=== PATIENT | female | born 1970 | race American Indian/Alaskan Native ===

== ENCOUNTER 2017-08-01 06:06 | Day surgery (SDC) | payer MEDICARE ==
[2017-08-01] MEDS ORDERED: WATER FOR IRRIG STERILE IR ONE (07:27)
[2017-08-01] MEDS ORDERED: DIPRIVAN 10 MG/ML IV ONE (07:30)
--- NOTE | 2017-08-01 07:37 | Anesthesia Consultation ---
Anesthesia Consult and Med Hx Date of service: 08/01/17 - Airway Anesthetic Teeth Evaluation: Good ROM Head & Neck: Adequate Mental/Hyoid Distance: Adequate Mallampati Class: Class II Intubation Access Assessment: Probably Good - Pulmonary Exam CTA: Yes - Cardiac Exam Cardiac Exam: RRR - Pre-Operative Health Status ASA Pre-Surgery Classification: ASA3 Proposed Anesthetic Plan: MAC - Pulmonary Hx Smoking: Yes (former, quit 3 yrs, 1/2 ppd x10yrs) Hx Asthma: No - Cardiovascular System Hx Hypertension: Yes - Gastrointestinal Hx Gastroesophageal Reflux Disease: Yes (omeprazole prn) - Other Systems Hx Obesity: Yes - Additional Comments Anesthesia Medical History Comments: NAC
--- NOTE | 2017-08-01 07:37 | Anesthesia Day of Surgery ---
Anesthesia Day of Surgery - Day of Surgery Patient Examined: Yes Patient H&P Reviewed: Yes Patient is NPO: Yes
[2017-08-01] MEDS ORDERED: NACL 0.9% 1000 ML 1,000 ML IV SCH (08:00)
--- NOTE | 2017-08-01 08:00 | Discharge Summary ---
Providers - Providers Date of discharge: 08/01/17 Attending physician: SUSAN DAVIS Hospitalization Condition: Good Procedures: egd Disposition: DC-01 TO HOME OR SELFCARE Core Measure Documentation - Palliative Care Palliative Care/ Comfort Measures: Not Applicable - Core Measures Any of the following diagnoses?: none Exam - Physical Exam Narrative exam: unchanged from pre-op - Constitutional Vitals: Temp Pulse Resp BP Pulse Ox 98.2 F 56 L 12 155/76 98 08/01/17 07:39 08/01/17 07:39 08/01/17 07:39 08/01/17 07:39 08/01/17 07:39 Plan Activity: no restrictions Weight Bearing Status: Full Weight Bearing Diet: regular Follow up with: RUBÉN JESSICA [Other] - 7 Days
--- NOTE | 2017-08-01 08:10 | Operative Report ---
Operative Report Operative Report: OPERATIVE REPORT - EGD DATE 08/01/17 SURGERY: Upper endoscopy. SURGEON: Leland Carter M.D. PROCEDURE: 1. EGD 2. Gastric mucosal bx PRE OP DX: GERD POST OP DX: 1. hiatal hernia 2. peptic ulcer disease 3. gastritis TYPE OF ANESTHESIA: MAC. ESTIMATED BLOOD LOSS: None. COMPLICATIONS: None. SPECIMENS REMOVED: None. FINDINGS: 1. Small hiatal hernia. 2. several peptic ulcers 3. gastritis INDICATIONS:INDICATION FOR PROCEDURE: Patient is a 47-year-old female with a long history of morbid obesity. She is planned to have a weight loss procedure and is here for preoperative planning EGD. We are looking for any pathology that may be prohibitive to her planned bariatric surgery. PROCEDURE DETAILS: After consent was reviewed, patient was taken back to the operating room where patient was placed in the left lateral decubitus position and a bite block was placed in the mouth. After a time-out was called, MAC anesthesia was initiated. I then passed the endoscope into her oropharynx, into her esophagus, visualized the entire esophagus. There was noted to be several shallow, small less than 1cm ulcers predominantly in the antrum. A forceps biopsy was performed of an ulcer at the antrum. There was also noted to be gross erythemetous changes of the mucosa consistent with gastritis. I then visualized the first portion of the duodenum and there were no abnormalities I could clearly visualize. I then retroflexed the scope in the stomach and visualized the hiatus and I could see a small hiatal hernia. I then desufflated the stomach and removed the endoscope. Patient tolerated procedure well and was transferred to recovery room in good and stable condition.
--- NOTE | 2017-08-01 10:28 | Post Anesthesia Evaluation ---
- Post Anesthesia Evaluation Patient Participated: Yes Airway Patent: Yes Stable Respiratory Function: Yes Nausea/Vomiting: No Temp > 96.8F: Yes Pain Manageable: Yes Adequeate Hydration: Yes Anesthesia Complications: No Block Receding Appropriately: Not Applicable Patient on Ventilator: No
[2017-08-01 11:11] VITALS: BP 119/94
== END 2017-08-01 06:07 | disposition home or self-care (01) ==
LOC: GIO 06:06
PROVIDERS: ATTEND Surgery
DX: K29.50 Unspecified chronic gastritis without bleeding (principal); K44.9 Diaphragmatic hernia without obstruction or gangrene; K27.9 Peptic ulcer, site unspecified, unspecified as acute or chronic, without hemorrhage or perforation; K21.9 Gastro-esophageal reflux disease without esophagitis; I10 Essential (primary) hypertension; F32.9 Major depressive disorder, single episode, unspecified; E78.00 Pure hypercholesterolemia, unspecified; E66.01 Morbid (severe) obesity due to excess calories; G47.33 Obstructive sleep apnea (adult) (pediatric); F41.9 Anxiety disorder, unspecified; Z98.890 Other specified postprocedural states; Z82.49 Family history of ischemic heart disease and other diseases of the circulatory system; Z83.3 Family history of diabetes mellitus; Z80.9 Family history of malignant neoplasm, unspecified; Z68.43 Body mass index [BMI] 50.0-59.9, adult
CPT/HCPCS: 43239; 88305; 88342; J2704; J7030

== ENCOUNTER 2018-03-03 07:00 | Inpatient (IN) | payer MEDICARE ==
--- NOTE | 2018-02-24 10:01 | Anesthesia Consultation ---
Anesthesia Consult and Med Hx Date of service: 02/24/18 - Airway Anesthetic Teeth Evaluation: Good (Missing several molars for which she plans to get bridges next month) ROM Head & Neck: Adequate Mental/Hyoid Distance: Adequate Mallampati Class: Class II Intubation Access Assessment: Probably Good - Pulmonary Exam CTA: Yes - Cardiac Exam Cardiac Exam: RRR - Pre-Operative Health Status ASA Pre-Surgery Classification: ASA3 Proposed Anesthetic Plan: General Nerve Block: discussed the possibility of TAP block - Pulmonary Hx Smoking: Yes (FOR 10 YEARS, QUIT IN 2014) Hx Asthma: No Hx Sleep Apnea: No (SLEEP STUDY NEG) - Cardiovascular System Hx Hypertension: Yes (8 YEARS) - Central Nervous System Hx Back Pain: Yes Hx Psychiatric Problems: Yes - Gastrointestinal Hx Ulcer: Yes Hx Gastroesophageal Reflux Disease: Yes (omeprazole prn) - Other Systems Hx Alcohol Use: No Hx Substance Use: No Hx Cancer: No Hx Obesity: Yes
[~2018-03-03 07:00] MED LIST: ANCEF/STERILE WATER 2 GM/20 ML 2 GM/20 ML SYRINGE IV NR; APRESOLINE IV PRN; FLAGYL 500 MG/100 ML 500 MG/100 ML BAG IV NR; LACTATED RINGERS 1,000 ML IV SCH; LOVENOX SUB-Q NR; MORPHINE IV PRN; MYLICON PO PRN; NACL 0.9% 1000 ML 1,000 ML IV SCH; NORCO PO PRN; TRANSDERM-SCOP TD SCH; ZOFRAN IV PRN
--- NOTE | 2018-03-03 11:26 | Anesthesia Day of Surgery ---
Anesthesia Day of Surgery - Day of Surgery Patient Examined: Yes Patient H&P Reviewed: Yes Patient is NPO: Yes
[2018-03-03] MEDS ORDERED: DEMEROL IV PRN (11:29)
[2018-03-03] MEDS ORDERED: NARCAN 0.4 MG/1 ML IV PRN (11:29)
[2018-03-03] MEDS ORDERED: ZOFRAN IV PRN (11:29)
[2018-03-03] MEDS ORDERED: NACL BACTERIOSTATIC INFILTRATI ONE (11:55)
[2018-03-03] MEDS: LACTATED RINGERS 1,000 ML IV SCH (12:00)
[2018-03-03] MEDS ORDERED: TYLENOL PO NR (12:00)
[2018-03-03 12:34] LABS: Bilirubin,Urine NEG (Negative); Blood,Urine NEG (Negative); Color,Urine Yellow (Yellow); Mucus,Urine FEW /HPF; Protein,Urine <15 mg/dL mg/dL (Negative); Urobilinogen,Urine < 2.0 mg/dL (<2.0)
[2018-03-03] MEDS ORDERED: PEPCID IV NR (13:00)
[2018-03-03] MEDS ORDERED: DIPRIVAN 10 MG/ML IV ONE ×2 (13:49→14:12)
[2018-03-03] MEDS ORDERED: SUBLIMAZE ONE (13:50)
[2018-03-03] MEDS ORDERED: XYLOCAINE 1% 20 mL ONE (13:57)
[2018-03-03] MEDS ORDERED: MARCAINE 0.5% 30 ML INFILTRATI ONE (13:57)
[2018-03-03] MEDS ORDERED: MARCAINE 0.5% INFILTRATI ONE (14:30)
[2018-03-03] MEDS ORDERED: XYLOCAINE 1% 20 mL INFILTRATI ONE (14:30)
[2018-03-03] MEDS ORDERED: QUELICIN ONE (14:39)
[2018-03-03] MEDS ORDERED: ZEMURON IV ONE (14:39)
[2018-03-03] MEDS ORDERED: XYLOCAINE MPF 2% ONE (14:39)
[2018-03-03] MEDS ORDERED: NACL 0.9% IR ONE (14:41)
[2018-03-03] MEDS ORDERED: ROBINUL ONE (15:05)
[2018-03-03] MEDS ORDERED: ZOFRAN ONE (15:05)
[2018-03-03] MEDS ORDERED: NEOSTIGMINE ONE (15:05)
[2018-03-03] MEDS ORDERED: NACL 0.9% 1000 ML 1,000 ML ONE (15:35)
[2018-03-03] MEDS ORDERED: DILAUDID ONE (15:58)
[2018-03-03] MEDS ORDERED: XANAX PO PRN (16:21)
--- NOTE | 2018-03-03 16:35 | Operative Report ---
Operative Report Operative Report: Operative Report DATE OF PROCEDURE: 03/03/18 PREOPERATIVE DIAGNOSES: Morbid obesity, hiatal hernia POSTOPERATIVE DIAGNOSES: 1.same as pre-op SURGEON: Dr. Bustamante PROCESS MAINTENANCE TECHNICIAN: Noe Randhawa DO, CST PROCEDURE: 1. laparoscopic sleeve gastrectomy 2. laparoscopic hiatal hernia repair ANESTHESIA: General. ESTIMATED BLOOD LOSS: <5 mL. COMPLICATIONS: None. SPECIMEN: Partial gastrectomy. FINDINGS: 1. hiatal hernia INDICATION FOR PROCEDURE: Patient is a 48 year-old F with a long history of morbid obesity. The patient has tried multiple efforts at weight loss without snf success. Pt is here today for sleeve gastrectomy. She has a hx of an umbilical hernia repair. PROCEDURE IN DETAIL: After consent was reviewed, patient was taken back to the operating room, where patient was placed supine on the bed with both arms out. The patient's legs were doubly strapped to the bed. Patient had a foot board in place. Patient had a body warmer placed by anesthesia. Patient was then prepped and draped in normal sterile surgical fashion. After a time-out was called, I made a stab incision in the left upper quadrant and place a veress needled. The abdomen was insuflatted to 18mmhg. Because the patient has a hx of an umbilical hernia repair and a large incision was noted surrounding the umbilicus a 15mm trocar was placed approximately4 finger breaths superior to the umbilicus via optiview technique with a scope. I then placed a 45-degree scope through this port and inspected the abdomen. There was no injury on entry of the abdomen. The veress needel was removed. I then placed two 5-mm ports in the right upper quadrant, one along the anterior axillary line and 1 subxiphoid below the costovertebral angle. I then placed 2 5mm left upper quadrant pors along the anterior axillary line in a similar fashion. Upon inspection, a mesh was noted at the umbilicus. The 15mm trocar did not interfere with the mesh. I then placed the liver retractor through the subxiphoid port and placed the patient in full reverse Trendelenburg. The right and left crura were skeletonized accentuating a small hiatal hernia. An anterior cruraplasty was perfromed with a figure-of-8 stitch using Endostich with 0 ethibond suture to reapproximate the crura. I then identified the pylorus and then counted off 6cm from the pylorus. I then used a LigaSure cutting device to enter into the lesser sac. At that point and then I took down the short gastrics all the way up to the left kana. Then I had anesthesia pass down a 40 [place] bougie along the lesser curvature of the stomach. I made sure everything else was out of the abdomen except the bougie. I then created my gastric sleeve using a 60-mm laparoscopic stapler. . The sleeve looked good without any twisting or torsion. I then had anesthesia to remove the bougie. Hemostasis was obtained along the staple line with a 10m clip rail specialist. I then used Tiseel along the entirety of the staple line and some on the liver. I then removed liver grasper and took it off the field. I then removed the stomach through the 15-mm umbilcal port. I then closed that fascia with a #1 PDS in a [id number] fashion using a Andrea-Freya. I then desufflated the abdomen and then removed all port sites. I then closed the incisions with 4-0 Monocryl in subcuticular fashion. I then dressed the wounds with steristrips, gauze and tegaderms. Patient tolerated the procedure well and was transferred to recovery room in good and stable condition
[2018-03-03] MEDS: DILAUDID IV PRN ×3 (16:55→19:57)
[2018-03-03] MEDS: REGLAN IV PRN (17:10)
[2018-03-03] MEDS ORDERED: LATANOPROST 0.005% OU SCH (18:00)
[2018-03-03] MEDS: NEURONTIN PO SCH (21:29)
[2018-03-04] MEDS: REGLAN IV PRN (00:03)
[2018-03-04] MEDS: DILAUDID IV PRN ×2 (00:04→09:23)
[2018-03-04] MEDS: LACTATED RINGERS 1,000 ML IV SCH (00:08)
[2018-03-04] MEDS: NEURONTIN PO SCH ×2 (05:32→13:39)
[2018-03-04 06:05] LABS: Basophils % (Auto) 0.2 % (0.0-1.8); Eosinophils % (Auto) 0.1 % (0.0-4.3); Hematocrit 37.5 % (30.3-42.9); Hemoglobin 12.5 gm/dl (10.1-14.3); Lymphocytes # (Auto) 1.5 K/mm3 (1.2-5.4); Mean Corpuscular HGB Conc 34 % (30-34); Mean Corpuscular Hemoglobin 29 pg (28-32); Mean Corpuscular Volume 86 fl (79-97); Monocytes # (Auto) 0.9 K/mm3 (0.0-0.8); Monocytes % (Auto) 8.7 % (0.0-7.3); Platelet Count 240 K/mm3 (140-440); Red Blood Count 4.37 M/mm3 (3.65-5.03); Red Cell Distribution Width 14.9 % (13.2-15.2)
[2018-03-04 06:26] LABS: BUN/Creatinine Ratio 14; Blood Urea Nitrogen 10 mg/dL (7-17); Calcium 8.5 mg/dL (8.4-10.2); Hemolysis Index 6
[2018-03-04] MEDS ORDERED: ZOLOFT PO SCH (10:00)
[2018-03-04] MEDS ORDERED: NORVASC PO SCH (10:00)
[2018-03-04] MEDS ORDERED: ZANAFLEX PO SCH (10:00)
[2018-03-04] MEDS ORDERED: LOVENOX SUB-Q SCH (10:00)
--- NOTE | 2018-03-04 16:08 | Discharge Summary ---
Providers - Providers Date of Admission: 03/03/18 08:00 Attending physician: MENDEZ HENSLEY Hospitalization Procedures: laparoscopic sleeve gastrectomy with hiatal hernia repair . Hospital course: 48 y.o. F admitted to the hospital for bariatric surgery. She underwent a laparoscopic sleeve gastrectomy with hiatal hernia repair . She tolerated the procedure well. On POD 1 she tolerated liquids and her pain was controlled. Denies vomiting. She ambulated well. She was discharged on POD 1 without issues. Disposition: DC-01 TO HOME OR SELFCARE Core Measure Documentation - Palliative Care Palliative Care/ Comfort Measures: Not Applicable - Core Measures Any of the following diagnoses?: none Exam - Physical Exam Narrative exam: Gen : A+Ox3 Cardio RRR abd: soft, obese, tender at incision sites. no rebound no guarding. minimal blood stain on dressings. - Constitutional Vitals: Temp Pulse Resp BP Pulse Ox 99.2 F 82 18 127/63 90 03/04/18 11:31 03/04/18 11:31 03/04/18 11:31 03/04/18 11:31 03/04/18 11:31 Plan Activity: other (no lifting >15lbs for 6 weeks ) Diet: clear liquids (sugar free clears ) Wound: keep clean and dry Additional Instructions: follow up for wound check appointment Follow up with: LEEANN JESSICA [Other] - 7 Days
[2018-03-04 16:49] VITALS: BP 132/64
== END 2018-03-04 18:04 | disposition home or self-care (01) | DRG 327 ==
LOC: 3A 08:00 → 3B-SURG 16:51
PROVIDERS: ADMIT Specialist; ATTEND Specialist
PROC: 0DB64Z3 Excision of Stomach, Percutaneous Endoscopic Approach, Vertical (ICD-10-PCS; principal; 2018-03-03)
PROC: 0BQT4ZZ Repair Diaphragm, Percutaneous Endoscopic Approach (ICD-10-PCS; 2018-03-03)
DX: K44.9 Diaphragmatic hernia without obstruction or gangrene (principal); Z68.43 Body mass index [BMI] 50.0-59.9, adult; E66.01 Morbid (severe) obesity due to excess calories; K21.9 Gastro-esophageal reflux disease without esophagitis; Z87.891 Personal history of nicotine dependence; I10 Essential (primary) hypertension
CPT/HCPCS: 36415; 80048; 81001; 85025; 88307; 94760; C9250; J0330; J0690; J1170; J1650; J2405; J2704; J2710; J2765; J3010; J7030; J7120